=== PATIENT | female | born 1975 | race Two or more races ===

== ENCOUNTER 2024-02-26 03:27 | Emergency (ER) | payer MEDICAID, OTHER ==
[~2024-02-26] VITALS: Ht 167.6 cm; Wt 90.7 kg
[2024-02-26 03:33] VITALS: O2SAT 100
[2024-02-26] MEDS: ONDANSETRON HCL 4 MG/2 ML VIAL IM ONE (04:51)
[2024-02-26] MEDS: MORPHINE SULFATE 4 MG/ML SYR/VIAL IM ONE (04:53)
[2024-02-26] MEDS: FLUORESCEIN SOD OPTH TEST STRIP EACHEYE ONE (04:53)
[2024-02-26] MEDS: CYCLOBENZAPRINE HCL 10 MG TAB PO ONE (05:30)
[2024-02-26] MEDS ORDERED: HYDR-4798 PO (05:32)
[2024-02-26] MEDS ORDERED: CYCL-839 PO (05:32)
[2024-02-26] MEDS ORDERED: CIPR0.3S67 OP (05:32)
[2024-02-26 05:45] VITALS: TEMP 98.5
[2024-02-26] MEDS ORDERED: CEPH500C PO (06:03)
[2024-02-26] MEDS: TETANUS-DIPTH-ACEL PERTUSSIS 0.5ML SYR Tdap IM ONE (06:06)
[2024-02-26 06:10] VITALS: BP 125/70; PULSE 75; RESP 18
== END 2024-02-26 06:12 | disposition home or self-care (01) ==
LOC: ER 03:27 → EDBD 03:27 → ER 06:12
DX: S05.12XA Contusion of eyeball and orbital tissues, left eye, initial encounter (principal); S05.11XA Contusion of eyeball and orbital tissues, right eye, initial encounter; S20.211A Contusion of right front wall of thorax, initial encounter; S40.812A Abrasion of left upper arm, initial encounter; S40.811A Abrasion of right upper arm, initial encounter; Z79.899 Other long term (current) drug therapy; V43.52XA Car driver injured in collision with other type car in traffic accident, initial encounter; Y93.I9 Activity, other involving external motion; Y92.89 Other specified places as the place of occurrence of the external cause; Y99.8 Other external cause status
CPT/HCPCS: 70450; 70486; 71045; 72125; 90471; 90715; 93005; 96372; 99285; J2270; J2405